=== PATIENT | male | born 1995 | race Hispanic/Latino ===

== ENCOUNTER 2021-09-08 19:18 | Emergency (ER) | payer OTHER ==
[~2021-09-08] VITALS: Ht 170.2 cm; Wt 118.4 kg
[2021-09-08] MEDS ORDERED: OCTYL 2-CYANOACRYLATE 1 EACH TP ONE (19:55)
[2021-09-08] MEDS ORDERED: ACETAMINOPHEN 500 MG TABLET PO ONE (20:00)
[2021-09-08 20:50] VITALS: BP 144/82
== END 2021-09-08 20:55 | disposition home or self-care (01) ==
LOC: EDH 19:18
DX: S01.81XA Laceration without foreign body of other part of head, initial encounter (principal); E66.9 Obesity, unspecified; Z68.41 Body mass index [BMI] 40.0-44.9, adult; W18.39XA Other fall on same level, initial encounter; Y93.89 Activity, other specified; Y92.89 Other specified places as the place of occurrence of the external cause; Y99.8 Other external cause status
CPT/HCPCS: 12011; 99282